=== PATIENT | female | born 1995 | race African-American/Black ===

== ENCOUNTER 2019-11-29 18:46 | Emergency (ER) | payer BC, SELFPAY ==
--- NOTE | ~2019-11-29 | XR_ITS ---
EXAMINATION: XR chest 2V DATE: 11/29/2019 21:36 INDICATION: Cough, fever and congestion TECHNIQUE: PA and lateral views of the chest were obtained. COMPARISON: Chest radiograph dated 06/02/2017 FINDINGS: The lungs remain clear with no focal airspace opacities, pulmonary edema, pleural effusion or pneumot horax. The cardiomediastinal silhouette is normal. Visualized bones and soft tissues are unremarkable . IMPRESSION: 1. Normal chest radiograph. Reviewed, dictated and finalized at location [facility]. DONTIC ASSISTANT IMPRESSION: 1. Normal chest radiograph.
[2019-11-29 18:55] VITALS: BP 145/80; PULSE 118; RESP 18; TEMP 37.9; O2SAT 100
--- NOTE | 2019-11-29 19:56 | ED.FEVER ---
HPI - Fever General Chief Complaint: Fever Stated Complaint: fever Time Seen by Provider: 11/29/19 19:08 Source: patient Mode of arrival: ambulatory Limitations: no limitations History of Present Illness HPI Narrative: Patient is a 24-year-old female who presents to emergency department for evaluation of fever chills body aches that began yesterday denies vomiting or diarrhea has been using her rescue inhaler with improvement is also taken [id number] medications with improvement patient denies known sick contacts notes aching pain that is generalized Related Data Home Medications Medication Instructions Recorded Confirmed valacyclovir 500 mg tablet 500 mg PO DAILY 10/29/19 Allergies Allergy/AdvReac Type Severity Reaction Status Date / Time Sulfa (Sulfonamide Allergy Unknown Hives Verified 11/29/19 18:59 Antibiotics) Review of Systems Review of Systems: All systems reviewed & are unremarkable except as noted in HPI and below PMFSH Past Medical History Medical History (Updated 11/29/19 @ 19:59 by Vu Escalona PA-C) Asthma Social History Social History Smoking status: Never smoker Second hand tobacco smoke exposure: No Alcohol intake: never Substance use: never Substance use type: does not use Gender identity (if verbalized by the patient): Female Exam Narrative: Exam Narrative: GENERAL: Well-appearing, well-nourished, and in no acute distress. HEAD: Normocephalic, atraumatic. EYES: PERRLA and EOMI. ENT: Nares clear, no rhinorrhea or epistaxis. Mucous membranes moist. Oropharynx without tonsillar hypertrophy exudate or other lesions. NECK: Supple. No adenopathy or masses. CHEST: Clear to auscultation. No respiratory distress. No wheezes rales or rhonchi HEART: Regular rate and rhythm. No murmur heard.. EXTREMITIES: Normal range of motion. No edema. SKIN: Warm, dry, no rash. NEURO: No focal deficits. Alert and oriented x3. Cranial nerves II through XII grossly intact PSYCH: Normal mood and affect. Course COMMUNICATIONS ASSISTANT/PA Physician Supervision Patient in the room in no distress aware of case findings treatment plan and diagnosis likely viral syndrome felt appropriate for discharge home provided with reasons to return Vital Signs Vital signs: Vital Signs Temperature 100.3 F H 11/29/19 18:55 Pulse Rate 118 H 11/29/19 18:55 Respiratory Rate 18 11/29/19 18:55 Blood Pressure 145/80 H 11/29/19 18:55 Pulse Oximetry 100 11/29/19 18:55 Temperature 100.3 F H 11/29/19 18:55 Pulse Rate 118 H 11/29/19 18:55 Respiratory Rate 18 11/29/19 18:55 Blood Pressure 145/80 H 11/29/19 18:55 Pulse Oximetry 100 11/29/19 18:55 MDM - Fever MDM Narrative Medical decision making narrative: Patient with likely viral syndrome in the room in no distress aware of case findings treatment plan and diagnosis felt appropriate for outpatient reevaluation nontoxic-appearing without emesis Lab Data Labs: Influenza A Screen Negative Reference Range: Negative Influenza B Screen Negative Reference Range: Negative Discharge Plan Discharge Clinical Impression: Viral infection Patient Disposition: Home, Self-Care Condition: Stable Instructions: Antibiotic Form, Viral Syndrome (ED) Additional Instructions: Follow up with your primary care provider within 3-5 days. Go to ER for shortness of breath, difficulty breathing, chest pain, fever/chills, weakness, nauseau/vomitting, etc. or any other concerns. Stay well-hydrated Take any prescribed medications as directed. Follow patient education sheets If you do not have a drug allergy to tylenol or motrin and can tolerate it then take tylenol or motrin as needed for discomfort/pain. Prescriptions: New ibuprofen [IBU] 600 mg tablet 600 mg PO TID PRN (Reason: fever or pain) Qty: 7 RF: 0 albuterol sulfate 90 mcg/actua
[2019-11-29] MEDS: IBUPROFEN 600 MG TABLET PO (20:06)
[2019-11-29 21:56] VITALS: BP 128/80; PULSE 90; RESP 20; TEMP 37.6; O2SAT 98
== END 2019-11-29 21:57 | disposition home or self-care (01) ==
PROVIDERS: Emergency Provider Emergency Medicine; PCP Pediatrics
DX: B34.9 Viral infection, unspecified (principal); J45.909 Unspecified asthma, uncomplicated
CPT/HCPCS: 71046; 87081; 87804; 87880; 99283; A9270

== ENCOUNTER 2020-01-18 05:53 | Day surgery (SDC) | payer BC, SELFPAY ==
[2020-01-13 10:26] VITALS: BMI 32.1
[2020-01-18 07:28] VITALS: BP 132/77; PULSE 85; RESP 14; TEMP 36.7; O2SAT 100; BMI 33.3
--- NOTE | 2020-01-18 07:39 | P.PNAN_ITS ---
Anes - Initial Pre Proc Eval Procedure: Operation Date: 01/18/20 08:30 Proposed Procedures p Colonoscopy - Nelson Mullen MD Date/Time: 01/18/20 07:39 Surgeon: Nelson Mullen MD Pre Op Diagnosis: bloody stools Patient Data Age: 24 Gender: F Height: 5 ft 8 in Weight: 99.5 kg Last Vital Signs Temp 36.7 C 01/18/20 07:28 Pulse 85 01/18/20 07:28 Resp 14 01/18/20 07:28 BP 132/77 01/18/20 07:28 Pulse Ox 100 01/18/20 07:28 Allergies Allergy/AdvReac Type Severity Reaction Status Date / Time Sulfa (Sulfonamide Allergy Unknown Hives Verified 01/18/20 07:25 Antibiotics) Home Medications Medication Instructions Recorded Confirmed Type valacyclovir 500 mg tablet 500 mg PO DAILY 10/29/19 01/18/20 History albuterol sulfate 2 puff INHALATION QID PRN #6.7 gm 11/29/19 01/13/20 Rx Patient hx anesthesia problems: none Family hx anesthesia problems: none [facility] Past Medical History Medical History (Updated 01/07/20 @ 21:36 by Yu Khan MD) Asthma Surgical History Surgical History (Updated 01/18/20 @ 07:39 by Rob Vivas MD) History of bunionectomy Social History Social History Social History: single Smoking status: Never smoker Second hand tobacco smoke exposure: No Alcohol intake: never Substance use: never Substance use type: does not use Gender identity (if verbalized by the patient): Female Anes - Eval Final PreProcedure Day of Procedure 01/18/20 07:39 Patient weight: obese Heart: regular rate and rhythm Lungs: clear to auscultation Airway: Mallampati scale class II Neurological: alert and oriented Last oral intake: >/= 8 hours ASA classification: II Emergent: no Anesthetic plan: proceed Anesthesia type and monitoring: general GIVS and standard monitoring Informed Consent: The patient's anesthetic plan and its attendant risks and benefits were discussed with the patient/family/POA. Questions were solicited and answers provided to the satisfaction of the patient/family/POA.
[2020-01-18] MEDS: LACTATED RINGERS 1,000 ML 150 ML IV CONT (07:40)
[2020-01-18 08:45] VITALS: BP 113/75; PULSE 81; RESP 23; O2SAT 100
--- NOTE | 2020-01-18 08:46 | WPDHPUPDATE1 ---
History and Physical Update Update Date/Time: 01/18/20 08:46 History and Physical has been reviewed, including an updated exam of the patient. There are NO changes in the patient's condition. Risks, benefits, and alternatives have been discussed and questions answered. Patient agrees to proceed with procedure.
[2020-01-18 08:55] VITALS: BP 127/75; PULSE 75; RESP 22; O2SAT 100
[2020-01-18 08:57] VITALS: BP 122/48; PULSE 72; RESP 20; O2SAT 100
== END 2020-01-18 09:26 | disposition home or self-care (01) ==
PROVIDERS: PCP Family Medicine; Visit Provider Internal Medicine Gastroenterology
PROC: 0DJD8ZZ Inspection of Lower Intestinal Tract, Via Natural or Artificial Opening Endoscopic (ICD-10-PCS; CPT 45378; principal; 2020-01-18 08:30)
DX: K62.5 Hemorrhage of anus and rectum (principal); J45.909 Unspecified asthma, uncomplicated; E66.9 Obesity, unspecified; Z68.33 Body mass index [BMI] 33.0-33.9, adult; Z83.71 Family history of colonic polyps
CPT/HCPCS: 45378; J2001; J2704; J7120

== ENCOUNTER 2020-04-08 11:55 | Emergency (ER) | payer BC, SELFPAY ==
[2020-04-08 12:02] VITALS: BP 135/84; PULSE 80; RESP 18; TEMP 36.8; O2SAT 100
--- NOTE | 2020-04-08 13:57 | ED.GENADULT ---
HPI - General Adult General Chief complaint: Skin/Abscess/Foreign Body Stated complaint: Cyst L thigh Time Seen by Provider: 04/08/20 12:04 Source: patient Mode of arrival: ambulatory Limitations: no limitations History of Present Illness HPI narrative: Patient is a 25-year-old female who presents to emergency department for evaluation of red tender swollen area in the left groin which is been there for the last several days. Patient notes increasing redness and pain worse with activity and movement. Patient believes she has had a cyst in this location that has become more swollen over the last several days. Patient denies any fever chills nausea vomiting. Patient has not taken anything for her some Related Data Allergies Allergy/AdvReac Type Severity Reaction Status Date / Time Sulfa (Sulfonamide Allergy Unknown Hives Verified 04/08/20 12:01 Antibiotics) Review of Systems Review of Systems: All systems reviewed & are unremarkable except as noted in HPI and below PMFSH Past Medical History Medical History Asthma Surgical History Surgical History History of bunionectomy Social History Social History Social History: single Smoking status: Never smoker Second hand tobacco smoke exposure: No Alcohol intake: never Substance use: never Substance use type: does not use Gender identity (if verbalized by the patient): Female Exam Narrative: Exam Narrative: GENERAL: Well-appearing, well-nourished, and in no acute distress. HEAD: Normocephalic, atraumatic. EYES: PERRLA and EOMI. ENT: Nares clear, no rhinorrhea or epistaxis. Mucous membranes moist. EXTREMITIES: Normal range of motion. No edema. SKIN: Warm, dry, no rash. Red tender swollen area in the left groin with surrounding erythema measuring 7 cm in diameter NEURO: No focal deficits. Alert and oriented x3. Neurovascularly intact PSYCH: Normal mood and affect. Course Course Emergency Course: Patient in the room in no distress aware of case findings treatment plan and diagnosis agreeing to follow-up as instructed Vital Signs Vital signs: Vital Signs Temperature 98.3 F 04/08/20 12:02 Pulse Rate 80 04/08/20 12:02 Respiratory Rate 18 04/08/20 12:02 Blood Pressure 135/84 04/08/20 12:02 Pulse Oximetry 100 04/08/20 12:02 Temperature 98.3 F 04/08/20 12:02 Pulse Rate 80 04/08/20 12:02 Respiratory Rate 18 04/08/20 12:02 Blood Pressure 135/84 04/08/20 12:02 Pulse Oximetry 100 04/08/20 12:02 Procedures Abscess I/D lower extremity: Date of Incision: 04/08/20 Time of Incision: 14:08 Side (if applicable): left Local Anesthetic: lidocaine 1% Technique: incised with #11 blade Amount of fluid expressed (mL): 25 Irrigation: No Packing used?: iodoform I&D Results: Pus and Blood Complications: pain Medical Decision Making MDM Narrative Medical decision making narrative: Patient had I&D in no distress agreeing to follow-up as directed provided with reasons to return otherwise healthy normal vital signs Vital Signs Vital Signs: Vital Signs Temperature 98.3 F 04/08/20 12:02 Pulse Rate 80 04/08/20 12:02 Respiratory Rate 18 04/08/20 12:02 Blood Pressure 135/84 04/08/20 12:02 Pulse Oximetry 100 04/08/20 12:02 Temperature 98.3 F 04/08/20 12:02 Pulse Rate 80 04/08/20 12:02 Respiratory Rate 18 04/08/20 12:02 Blood Pressure 135/84 04/08/20 12:02 Pulse Oximetry 100 04/08/20 12:02 Discharge Plan Discharge Clinical Impression: Abscess Patient Disposition: Home, Self-Care Condition: Stable Instructions: Antibiotic Form, Abscess (ED) Additional Instructions: Follow up with primary care in the next 2-3 days for re-evaluation and packing r
[2020-04-08 14:17] VITALS: BP 134/70; PULSE 82; RESP 12; O2SAT 99
== END 2020-04-08 14:19 | disposition home or self-care (01) ==
PROVIDERS: Emergency Provider Emergency Medicine; PCP Pediatrics
DX: L02.214 Cutaneous abscess of groin (principal); J45.909 Unspecified asthma, uncomplicated
CPT/HCPCS: 10061; 99283

== ENCOUNTER → 2021-07-07 03:42 | Outpatient (CLI) | payer BC, SELFPAY ==
[2021-07-07 17:41] LABS: SARS-CoV-2 RNA PCR Negative
== END ==
PROVIDERS: Physician Assistant; PCP Family Medicine; Visit Provider Family Medicine
DX: R68.89 Other general symptoms and signs (principal); Z20.822 Contact with and (suspected) exposure to COVID-19
CPT/HCPCS: C9803; U0003; U0005

== ENCOUNTER 2021-09-14 12:25 | Outpatient (CLI) | payer BC, SELFPAY ==
--- NOTE | ~2021-09-14 | US_ITS ---
US breast LT complete DATE: 09/14/2021 14:14 INDICATION: Left breast pain TECHNIQUE: Real-time imaging of the complete left breast including all 4 quadrants and subareolar are a COMPARISON: None FINDINGS: No suspicious mass, suspicious vascularity or significant abnormal shadowing is detected. IMPRESSION: BI-RADS Category 1: Negative Recommendation: Routine mammographic screening beginning at age 40 Reviewed, dictated and finalized at [facility]. Reviewed, dictated and finalized at location A. 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
== END 2021-09-14 12:26 | disposition home or self-care (01) ==
PROVIDERS: PCP Family Medicine; Visit Provider Family Medicine
DX: N64.4 Mastodynia (principal)
CPT/HCPCS: 76641

== ENCOUNTER 2022-02-18 08:59 | Emergency (ER) | payer OTHER, BC, SELFPAY ==
[2022-02-18] VITALS (7 sets, daily range): BP systolic 126; BP diastolic 70–71; PULSE 69–90; RESP 18; TEMP 36.3; O2SAT 99–100
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
--- NOTE | ~2022-02-18 | XR_ITS ---
EXAMINATION: XR foot RT min 3V DATE: 02/18/2022 10:22 INDICATION: Right foot pain TECHNIQUE: Dorsoplantar, two oblique and lateral views of the right foot were obtained. COMPARISON: None. FINDINGS: Alignment is normal. No fracture. Joint spaces are normal. Small Achilles calcaneal spur. Soft tissue s are unremarkable. IMPRESSION: 1. No acute osseous abnormality. Reviewed, dictated and finalized at location A.
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
== END 2022-02-18 11:36 | disposition home or self-care (01) ==
PROVIDERS: Emergency Provider Emergency Medicine; PCP Family Medicine
DX: S16.1XXA Strain of muscle, fascia and tendon at neck level, initial encounter (principal); S90.31XA Contusion of right foot, initial encounter; M54.50 Low back pain, unspecified; V43.52XA Car driver injured in collision with other type car in traffic accident, initial encounter
CPT/HCPCS: 70450; 71046; 72110; 72125; 73630; 99284

== ENCOUNTER → 2022-03-23 02:28 | Outpatient (CLI) | payer BC, SELFPAY ==
[2022-03-23 14:11] LABS: SARS-CoV-2 RNA PCR Positive
== END ==
PROVIDERS: PCP Family Medicine; Visit Provider Physician Assistant
DX: U07.1 COVID-19 (principal)
CPT/HCPCS: C9803; U0003; U0005

== ENCOUNTER 2024-02-01 20:41 | Emergency (ER) | payer OTHER, SELFPAY ==
[2024-02-01 20:42] VITALS: BP 136/86; PULSE 90; RESP 15; TEMP 36.4; O2SAT 100
--- NOTE | 2024-02-01 20:52 | ED.GENADULT ---
[facility] - General Adult General Chief complaint: Skin/Abscess/Foreign Body Stated complaint: Cyst on left thigh Time Seen by Provider: 02/01/24 20:46 Source: patient Mode of arrival: ambulatory Limitations: no limitations History of Present Illness HPI narrative: This is a 28-year-old female who presents to the ED with chief complaint of left inner thigh pain and swelling for the past week. Reports a focal area of swelling consistent with what she thinks to be a cyst. Patient reports that she has had this develop in the past around the same area. She has associated lesions that are similar but less painful to her superior pubic area. Denies fevers, chills, nausea vomiting. Related Data Allergies Allergy/AdvReac Type Severity Reaction Status Date / Time Sulfa (Sulfonamide Allergy Unknown Hives Verified 02/01/24 20:45 Antibiotics) Review of Systems Review of Systems: All systems as dictated in [facility] Past Medical History Medical History Asthma Bronchospasm, exercise-induced Foul smelling vaginal discharge Herpes genitalia STD (sexually transmitted disease) Trichomonas vaginalis infection Surgical History Surgical History History of bunionectomy Social History Social History Social History: Single Smoking status: Never smoker Second hand tobacco smoke exposure: No Alcohol intake: never Substance use: never Substance use type: does not use Do You Feel Safe in your Home?: Yes Lack of Transportation: No Lack of Food: Never True Current Housing: I Have Housing Concerned About Future Housing: No Difficulty Paying Gas/Electric Bills: No Difficulty Paying for Meds: No Currently Unemployed: No Education: Decline to Answer Difficulty w/ Childcare or Family Care: No Living arrangements: with family Occupation/Education: occupation Gender identity (if verbalized by the patient): Female Sexual Orientation (if Verbalized by the Patient): Straight or Heterosexual Exam Narrative: GENERAL: Well-appearing, well-nourished, and in no acute distress. HEAD: Normocephalic, atraumatic. EYES: PERRLA and EOMI. ENT: Nares clear, no rhinorrhea or epistaxis. Mucous membranes moist. Oropharynx without tonsillar hypertrophy exudate or other lesions. NECK: Supple. No adenopathy or masses. CHEST: No respiratory distress. Clear to auscultation. No wheezes rales or rhonchi HEART: Regular rate and rhythm. No murmur heard. Normal peripheral pulses. ABDOMEN: Soft, nontender, nondistended, normal active bowel sounds. MSK: Normal range of motion. No edema. SKIN: There is an area of warmth, induration to the left medial thigh. No drainage. No obvious fluid collection. No area of skin NEURO: Alert and oriented x3. No focal deficits. PSYCH: Normal mood and affect. Course Course Emergency Course: Bedside ultrasound showed obvious fluid collection at the left thigh indicating soft tissue abscess. No surrounding induration or skin changes to indicate severe deep space infection such as Kameron's gangrene. Vital Signs Vital signs: Vital Signs Temperature 97.5 F L 02/01/24 20:42 Pulse Rate 90 02/01/24 20:42 Respiratory Rate 15 02/01/24 20:42 Blood Pressure 136/86 02/01/24 20:42 Pulse Oximetry 100 02/01/24 20:42 Oxygen Delivery Room Air 02/01/24 20:42 Temperature 97.5 F L 02/01/24 20:42 Pulse Rate 79 02/01/24 22:35 Respiratory Rate 20 02/01/24 22:35 Blood Pressure 137/91 H 02/01/24 22:35 Pulse Oximetry 100 02/01/24 22:35 Oxygen Delivery Room Air 02/01/24 20:42 Procedures Abscess I/D lower extremity: Date of Incision: 02/01/24 Time of Incision: 22:22 Side (if applicable): left Local Anesthetic: lidocaine 1% and with epi Amount of anesthesia used
[2024-02-01] MEDS: HYDROcodone/acetaminophen (*CRX) 7.5-325 MG TABLET 1 TAB PO (21:48)
--- NOTE | 2024-02-01 22:32 | PC.NURSE ---
Applied non-adherent dressing and secured with tape at this time.
[2024-02-01 22:35] VITALS: BP 137/91; PULSE 79; RESP 20; O2SAT 100
== END 2024-02-01 22:35 | disposition home or self-care (01) ==
PROVIDERS: Emergency Provider Physician Assistant; PCP Family Medicine
DX: L02.416 Cutaneous abscess of left lower limb (principal); J45.909 Unspecified asthma, uncomplicated
CPT/HCPCS: 10060; 99283; A9270

== ENCOUNTER 2024-12-16 04:37 | Observation (INO) | payer OTHER, SELFPAY ==
[2024-12-16] VITALS (14 sets, daily range): BP systolic 121–142; BP diastolic 62–87; PULSE 74–94; RESP 12–20; TEMP 36.3–36.8; O2SAT 95–100; BMI 36.5
--- NOTE | ~2024-12-16 | CT_ITS ---
CT of the Abdomen and Pelvis: Indication: Abdominal pain Technique: 2.5 mm axial scans were obtained through the abdomen and pelvis following intravenous adm inistration of 100 cc of Omnipaque 350. Dose reduction technique was used on this scan by utilizing a utomated exposure control and iterative reconstruction technique. The dose-length product (DLP) was 1 158.11 mGy-cm. Findings: Scans through the lung bases are unremarkable. The liver, spleen, pancreas, gallbladder, adrenals and kidneys are within normal limits. No evidence of aortic aneurysm. No lymphadenopathy. No bowel obstruction or bowel wall thickening. Appendix is mildly prominent at 8 mm. Questionable min imal periappendiceal inflammatory stranding. Images through the pelvis were performed. Urinary bladder unremarkable. Probable small right ovarian cyst. Small amount of pelvic ascites present. Impression: Findings suggestive of possible early appendicitis. Correlate clinically. Small right ovarian cyst with small amount of pelvic ascites. Reviewed, dictated and finalized at [facility]. Impression: Findings suggestive of possible early appendicitis. Correlate clinically. Small right ovarian cyst with small amount of pelvic ascites.
--- OUTSIDE RECORDS SUMMARY | 2024-12-16 04:39 | XMS_ITS | Clinical Summary ---
Author Organization [facility] Address [address] [place] [address] Care Team Providers Care Occupational Therapy Assist Name Role Phone Unavailable Primary Care Provider Unavailabl e Source Comments [facility],non-owned Affiliates and Associated Physician Practices is amultiple site organization consisting of ambulatory clinics and hospital sitesin [place], [place], [place] and [place]. This disclosure is being madepursuant to the Care Everywhere program and may not contain all information available regarding this patient. Last updated 18.[facility] Allergies Active Allergy Reactions Criticality Noted Date Comments Sulfa Drugs Urticaria 11/01/2009 Medications * Be aware that medications may not be up to date on this document. Alwaysverify current medications with the patient. Medication Sig Dispensed Refills Start Date End Date Status Peak Flow Meter [place] Rang LUISA Use. Use as directed to monitor asthma symptoms 1 0 10/21/2009 Active albuterol (PROVENTIL;VENTOLIN ) (5 MG/ML) 0.5% nebulizer solution Inhale 1 mL by mouth. Use every 4 hours as needed for cough, wheeze 30 Vial 1 11/03/2010 Active VENTOLIN HFA 108 (90 BASE) MCG/ACT inhaler INHALE 2 PUFFS BY MOUTH EVERY 4 HOURS NEEDED 1 Inhaler 0 01/06/2013 Active SUMAtriptan (IMITREX) 50 MG tabletIndications:H eadache Take 1 Tab by mouth once as needed for Migraine for 1 dose. Indications: Headache 8 Tab 4 01/19/2013 Active naproxen sodium (ANAPROX) 275 MG tabletIndications:M ild to Moderate Pain Take 1 Tab by mouth 2 times daily as needed for Pain. Indications: Mild to Moderate Pain 30 Tab 4 01/19/2013 Active topiramate (TOPAMAX) 25 MG tabletIndications:M igraine Take 1 tab at bedtime for 2 weeks, then take 2 tabs at bedtime. Indications: Migraine Headache 45 Tab 1 01/19/2013 Active naproxen sodium (ANAPROX DS) 550 MG tabletIndications:E pisodic Migraine Headache Prevention Take 1 Tab by mouth 2 times daily. Indications: Episodic Migraine Headache Prevention 30 Tab 4 04/22/2013 Active albuterol HFA (PROVENTIL;VENTOLIN ;PROAIR) 108 (90 BASE) MCG/ACT inhaler Inhale 2 Puffs by mouth every 4 hours as needed for Wheezing or Cough. OK TO SUBSTITUTE ANY BRAND. 2 Inhaler 0 05/07/2013 Active Active Problems Problem Noted Date Diagnosed Date Acne 03/20/2012 Asthma 03/26/2011 Overview (08/07/2015): Immunizations Name Administration Dates Next Due DTaP VACCINE IM (6wk-6yrs) 04/16/2002,,1997,07/12,1997 HEP A PEDS 2 DOSE 05/12/2010,05/06/2008 HEP B VACCINE, PED/ADOL 1997,1997, Human Papilloma Virus Vaccine 05/06/2008, 007,05/05/2007 INFLUENZA VACCINE, QUADR. (F LUZONE; FLULAVAL; FLUARIX; AFLURIA QUADRIVALENT; 6MO+), 0.5 ML (IIV4) 08/16/2014,06/29/2013 MENINGOCOCAL MENINGITIS 05/06/2008 MENINGOCOCCAL CONJUGATE (MCV4P) 03/19/2013 MMR 04/16/2002,04/25/1998 POLIO OPV 04/16/2002, 8,1997,05/11 TDAP (7yrs+) 05/12/2010 VARICELLA 05/06/2008,05/21/2007 Family History Medical History Relation Name Comments Hypercholesterolemia Father Hypertension Father Allergies Mother Heart Disease Mother Mitral Valve P rolapse, has Pacemaker for Hypertension Mother Arthritis Paternal Grandmother Asthma Sister Relation Name Status Comments Father Mother Paternal Grandmother Sister Social History Tobacco Use Types Packs/Day Years Used Date Smoking Tobacco: Never Assessed Sex and Gender Information Value Date Recorded Sex Assigned at Not on file Gender Identity Not on file Sexual Orientation Not on file Last Filed Vital Signs Vital Sign Reading Time Taken Comments Blood Pressure 122/60 04/22/2013 8:24 AM CDT Pulse 76 03/19/2013 1:34 PM CDT Temperature 36.9 C (98.4 F) 09/29/2012 9:04 AM ADVERTISING ACCOUNT REPRESENTATIVE Respiratory Rate 24 03/26/2011 1:22 PM CDT Oxygen Saturation 98% 11/03/2010 3:00 PM ADVERTISING ACCOUNT REPRESENTATIVE Inhaled Oxygen Concentration - - Weight 70.2 kg (154 lb 11.2 oz) 04/22/2013 8:24 AM CDT Height 172.5 cm (5' 7.91 ) 04/22/2013 8:24 AM CD T Body Mass Index 23.58 04/22/2013 8:24 AM CDT Plan of Treatment Health Maintenance Due Date Last Done Comments PAP SMEAR 1997 HIV SCREENING 2012 HEPATITIS C SCREENING 03/07/2015 PNEUMOCOCCAL VACCINE (1 of 2 - PCV) 2016 DTAP/TDAP/TD VACCINES (7 - Td or Tdap) 05/12/2020 05/12/2010, 04/16/2002, 05/23/2000, Additional history exists COVID-19 VACCINE (2023- season) 2024 INFLUENZA VACCINE (#1) 2024 08/16/2014, 2012 DEPRESSION SCREENING 09/30/2024 ZOSTER VACCINE (1 of 2) 2047 HEPATITIS B VACCINE Completed 1997, 1997, 1997 HPV VACCINE Completed 05/06/2008, 10/0 04/2007, 05/05/2007 MENINGOCOCCAL GROUPS A/C/Y/W VACCINE Completed 03/19/2013, 05/06/2008 HIB VACCINE Aged Out No longer eligi ble based on patient's age to complete this topic MENINGOCOCCAL (Group B) VACCINE SHARED DECISION-MAKING Aged Out No longer eligible based on patient's age to complete this topic
[2024-12-16 05:18] LABS: BEDSIDEPREGUCG Negative (Negative)
--- OUTSIDE RECORDS SUMMARY | 2024-12-16 05:22 | XMS_ITS | Clinical Summary ---
Author Organization [email or web address] Address [address] [place] [address] Care Team Providers Care Hot Knife Foxing Cutter Name Role Phone Unavailable Primary Care Provider Unavailabl e Source Comments [email or web address],non-owned Affiliates and Associated Physician Practices is amultiple site organization consisting of ambulatory clinics and hospital sitesin [place], [place], [place] and [place]. This disclosure is being madepursuant to the Care Everywhere program and may not contain all information available regarding this patient. Last updated 18.[email or web address] Allergies Active Allergy Reactions Criticality Noted Date Comments Sulfa Drugs Urticaria 11/01/2009 Medications * Be aware that medications may not be up to date on this document. Alwaysverify current medications with the patient. Medication Sig Dispensed Refills Start Date End Date Status Peak Flow Meter [place] Rang LUISA Use. Use as directed to [...] 36.9 C (98.4 F) 09/29/2012 9:04 AM DEPUTY SHERIFF BAILIFF Respiratory Rate 24 03/26/2011 1:22 PM CDT Oxygen Saturation 98% 11/03/2010 3:00 PM DEPUTY SHERIFF BAILIFF Inhaled Oxygen Concentration - - Weight 70.2 [...]
[2024-12-16 05:23] LABS: Add Urine Microscopic? NO; Appearance Urine Clear (Clear); Bilirubin Urine Negative (Negative); Blood Urine Negative (Negative); Color Urine Yellow (Yellow); Glucose Urine UA Negative (Negative); Ketones Urine Negative (Negative); Leukocyte Esterase Ur Negative LEU/UL (Negative); Nitrate Urine Negative (Negative); Protein Urine Negative (Negative); Specific Grav Ur 1.018 (1.001-1.035); Urobilinogen Urine 0.2 mg/dL (<2.0); pH Urine 5.5 (5.0-9.0)
--- NOTE | 2024-12-16 05:28 | ED_ITS ---
HPI - General Adult General Chief complaint: Urogenital-Female Stated complaint: c/o suprapubic pain Time Seen by Provider: 12/16/24 05:13 History of Present Illness HPI narrative: Patient 29-year-old female who presents emergency department with chief complaint suprapubic pain. Patient reports for the last 2 hours she has been having lower abdominal pain more in the suprapubic region patient states she has also had urinary frequency patient reports he has been holding her urine lot and is concerned that she may have a UTI patient denies fever reports her last menstrual period was within the last month and was normal Related Data Home Medications ?Medication ?Instructions ?Recorded ?Confirmed ?Last Taken ?Type spironolactone 100 mg tablet 100 mg PO DAILY 09/28/24 09/28/24 Unknown History Allergies Allergy/AdvReac Type Severity Reaction Status Date / Time Sulfa (Sulfonamide Allergy Unknown Hives Verified 12/16/24 04:37 Antibiotics) Review of Systems 2 Review of Systems: A 10 system review of systems was completed on the patient and is negative except for what is stated in the HPI. Nursing and ancillary documentation was reviewed. [facility] Past Medical History Medical History STD (sexually transmitted disease) Herpes genitalia Trichomonas vaginalis infection Bronchospasm, exercise-induced Foul smelling vaginal discharge Asthma Surgical History Surgical History History of bunionectomy Social History Social History Social History: Single Smoking status: Never smoker Second hand tobacco smoke exposure: No Alcohol intake: never Substance use: never Substance use type: does not use Do You Feel Safe in your Home?: Yes Lack of Transportation: No Lack of Food: Never True Current Housing: I Have Housing Concerned About Future Housing: No Difficulty Paying Gas/Electric Bills: No Difficulty Paying for Meds: No Currently Unemployed: No Education: Decline to Answer Difficulty w/ Childcare or Family Care: No Living arrangements: with family Occupation/Education: occupation Gender identity (if verbalized by the patient): Female Sexual Orientation (if Verbalized by the Patient): Straight or Heterosexual Exam 2 Narrative: GENERAL: Well-appearing, well-nourished, and in no acute distress. HEAD: Normocephalic, atraumatic. EYES: PERRLA and EOMI. ENT: Nares clear, no rhinorrhea or epistaxis. Mucous membranes moist. NECK: Supple. CHEST: Clear to auscultation. No respiratory distress. HEART: Regular rate and rhythm. No murmur heard. Normal peripheral pulses. ABDOMEN: Soft, tenderness to palpation in bilateral lower quadrants and suprapubic region, nondistended, normal active bowel sounds. EXTREMITIES: Normal range of motion. No edema. SKIN: Warm, dry, no rash. NEURO: No focal deficits. Alert and oriented x3. PSYCH: Normal mood and affect. Course Vital Signs Vital signs: Vital Signs Temperature 36.5 C 12/16/24 06:26 Pulse Rate 94 12/16/24 06:26 Respiratory Rate 17 12/16/24 06:26 Blood Pressure 132/87 12/16/24 06:26 Pulse Oximetry 98 12/16/24 06:26 Temperature 36.5 C 12/16/24 06:26 Pulse Rate 88 12/16/24 07:02 Respiratory Rate 16 12/16/24 07:02 Blood Pressure 142/71 H 12/16/24 07:02 Pulse Oximetry 100 12/16/24 07:02 Medical Decision Making MDM Narrative Medical decision making narrative: Differential diagnosis includes UTI, pyelonephritis, appendicitis, diverticulitis, colitis Laboratory studies were obtained showed normal CBC white count was 5.9 electrolytes are within normal limits urinalysis was negative test was negative CT scan of the abdomen pelvis showed Findings suggestive of possible early appendicitis. Correlate clinically. Small right ovarian cyst with small amount of pelvic ascites Given the findings of the CT scan the patient was started on Zosyn the case was discussed Dr. Salvador is on-call for surgery patient will be admitted to the surgical service for observation Vital Signs Vital Signs: Vital Signs Temperature 36.5 C 12/16/24 06:26 Pulse Rate 94 12/16/24 06:26 Respiratory Rate 17 12/16/24 06:26 Blood Pressure 132/87 12/16/24 06:26 Pulse Oximetry 98 12/16/24 06:26 Temperature 36.5 C 12/16/24 06:26 Pulse Rate 88 12/16/24 07:02 Respiratory Rate 16 12/16/24 07:02 Blood Pressure 142/71 H 12/16/24 07:02 Pulse Oximetry 100 12/16/24 07:02 Lab Data 12/16/24 05:46 12/16/24 05:46 Labs: Lab Results 12/16/24 12/16/24 12/16/24 Range/Units 05:11 05:15 05:46 WBC 5.9 (4.5-10.0) K/mm3 RBC 3.89 L (4.2-5.4) M/mm3 Hgb 11.1 L (12.0-15.0) g/dL Hct 34.0 L (37.0-47.0) % MCV 87.4 (80-100) fl MCH 28.5 (26-34) pg MCHC 32.6 (32-36) g/dl RDW 14.0 (11.5-14.5) % Plt Count 296 (150-375) k/mm3 MPV 10.7 H (7.4-10.4) fl Immature Gran % (Auto) 0.2 (0-0.5) % Neut % (Auto) 50.5 (45.5-73.1) % Lymph % (Auto) 37.6 (18.3-44.2) % [place] % (Auto) 8.1 (2.6-8.5) % Eos % (Auto) 2.9 (0-4.4) % Baso % (Auto) 0.7 (0.2-1.2) % Lymph # (Auto) 2.22 (0.9-3.2) K/mm3 [place] # (Auto) 0.5 (0.1-0.6) K/mm3 Eos # (Auto) 0.2 (0-0.3) K/mm3 Baso # (Auto) 0.0 (0.0-0.1) K/mm3 Abs Immat Gran (auto) 0.01 (0.00-0.031) K/mm3 Absolute Neuts (auto) 3.0 (1.3-6.7) K/mm3 Absolute Nucleated RBC 0.000 (0.0-0.012) K/mm3 Nucleated RBC % 0.0 (0.0-0.2) % Sodium 137 (137-145) mmol/L Potassium 3.9 (3.4-5.0) mmol/L Chloride 104 (98-107) mmol/L Carbon Dioxide 25 (22-30) mmol/L Anion Gap 8 (4-12) mmol/L BUN 9 (7-17) mg/dL Creatinine 0.84 (0.7-1.0) mg/dL Estim Creat Clear Calc 114 ml/min Estimated GFR > 60 (59 - ) Glucose 111 H (65-110) mg/dL Calcium 9.3 (8.4-10.2) mg/dL Total Bilirubin 0.7 (0.2-1.3) mg/dL AST 21 (14-36) U/L ALT 21 (6-35) U/L Alkaline Phosphatase 61 (38-126) U/L Total Protein 7.0 (6.3-8.2) g/dL Albumin 4.0 (3.5-5.1) g/dL Lipase 37 (23-300) U/L Urine Color Yellow (Yellow) Urine Appearance Clear (Clear) Urine pH 5.5 (5.0-9.0) Ur Specific [place] 1.018 (1.001-1.035) Urine Protein Negative (Negative) mg/dL Urine Glucose (UA) Negative (Negative) mg/dL Urine Ketones Negative (Negative) mg/dL Ur Blood (Man) Negative (Negative) Urine Nitrate Negative (Negative) Urine Bilirubin Negative (Negative) Urine Urobilinogen 0.2 (<2.0) mg/dL Leukocyte Esterase Rfl Negative (Negative) LAURA/UL POC Urine HCG, Qual Negative (Negative) Discharge Plan Discharge Clinical Impression: Abdominal pain, Acute appendicitis Patient Disposition: Still a Patient Condition: Stable Patient Language: Slovak Prescriptions: No Action spironolactone 100 mg tablet 100 mg PO DAILY Rx Instructions: as per derm valacyclovir [Valtrex] 500 mg tablet 500 mg PO DAILY Qty: 90 0RF Follow-up/Referrals: Juan Pablo Reddy MD [Primary Care Provider] - Time of Disposition: 07:06
[2024-12-16 06:12] LABS: Basophils Percent Auto 0.7 % (0.2-1.2); Eosinophils Absolute Auto 0.2 K/mm3 (0-0.3); Eosinophils Percent Auto 2.9 % (0-4.4); Hemoglobin 11.1 g/dL (12.0-15.0); Immature Granulocyte Absolute 0.01 K/mm3 (0.00-0.031); Immature Granulocyte Percent A 0.2 % (0-0.5); Lymphocytes Absolute Auto 2.22 K/mm3 (0.9-3.2); Lymphocytes Percent Auto 37.6 % (18.3-44.2); Mean Corpuscular HGB Conc 32.6 g/dl (32-36); Mean Corpuscular Hemoglobin 28.5 pg (26-34); Mean Corpuscular Volume 87.4 fl (80-100); Mean Platelet Volume 10.7 fl (7.4-10.4); Monocytes Absolute Auto 0.5 K/mm3 (0.1-0.6); Monocytes Percent Auto 8.1 % (2.6-8.5); Neutrophils Percent Auto 50.5 % (45.5-73.1); Platelet Count Result 296 k/mm3 (150-375); Red Blood Count 3.89 M/mm3 (4.2-5.4); White Blood Count 5.9 K/mm3 (4.5-10.0)
[2024-12-16 06:22] LABS: Alanine Aminotransferase 21 U/L (6-35); Alkaline Phosphatase 61 U/L (38-126); Anion Gap 8 mmol/L (4-12); Aspartate Amino Transferase 21 U/L (14-36); Bilirubin,Total 0.7 mg/dL (0.2-1.3); Blood Urea Nitrogen 9 mg/dL (7-17); Calcium 9.3 mg/dL (8.4-10.2); Carbon Dioxide 25 mmol/L (22-30); Chloride 104 mmol/L (98-107); Estimated CRCL calculation 114 ml/min; Estimated Glomerular Filt Rate > 60; Glucose 111 mg/dL (65-110); Lipase 37 U/L (23-300); Potassium 3.9 mmol/L (3.4-5.0); Sodium 137 mmol/L (137-145)
[2024-12-16] MEDS: PIPERACILLN/TAZ 3.375GM/NS50ML 3.375 GM/50 ML BAG IVPB ×2 (07:26→12:18)
--- NOTE | 2024-12-16 09:32 | P.HP_ITS ---
H&P: HPI History of Present Illness Date/Time: 12/16/24 09:32 Chief Complaint: Lower abdominal pain Narrative: This is a 29-year-old woman who presented to the ED early this morning with complaints of lower abdominal pain. Her abdominal pain started last night initially was periumbilical. She reports it moved more into her lower abdomen throughout the night. Her pain was aggravated by bending and certain movements. No associated nausea, vomiting, diarrhea, fever, or chills. Due to her persistent pain, she came into the ED for evaluation. Labs showed a normal white blood cell count. CT scan of the abdomen/pelvis showed findings suggestive of possible early appendicitis, and a small right ovarian cyst with small amount of pelvic ascites. She was admitted and started on IV Zosyn. She is now seen on medical floor. Urine negative. Vital signs are stable and she is afebrile. No previous abdominal surgeries. Denies any dysuria, hematuria, frequency, urgency, vaginal discharge, vaginal odor or itching, new sexual partners, or any additional complaints. Review of Systems Review of Systems: All systems reviewed & are unremarkable except as noted in HPI and below PMFSH Past Medical History Medical History STD (sexually transmitted disease) Herpes genitalia Trichomonas vaginalis infection Bronchospasm, exercise-induced Foul smelling vaginal discharge Asthma Surgical History Surgical History History of bunionectomy Social History Social History Social History: Single Smoking status: Never smoker Second hand tobacco smoke exposure: No Alcohol intake: never Substance use: never Substance use type: does not use Do You Feel Safe in your Home?: Yes Lack of Transportation: No Lack of Food: Never True Current Housing: I Have Housing Concerned About Future Housing: No Difficulty Paying Gas/Electric Bills: No Difficulty Paying for Meds: No Currently Unemployed: No Education: Decline to Answer Difficulty w/ Childcare or Family Care: No Living arrangements: with family Occupation/Education: occupation Gender identity (if verbalized by the patient): Female Sexual Orientation (if Verbalized by the Patient): Straight or Heterosexual Meds Home Medications and Allergies Home Medications ?Medication ?Instructions ?Recorded ?Confirmed ?Type spironolactone 100 mg tablet 100 mg PO DAILY 09/28/24 09/28/24 History valacyclovir 500 mg tablet 500 mg PO DAILY #90 tabs 10/16/24 Rx (Valtrex) Allergies Allergy/AdvReac Type Severity Reaction Status Date / Time Sulfa (Sulfonamide Allergy Unknown Hives Verified 12/16/24 04:37 Antibiotics) Vital Signs Vital Signs - 24 hr 12/16/24 06:26 12/16/24 07:02 Temperature 97.7 F Pulse Rate 94 88 Respiratory Rate 17 16 Blood Pressure 132/87 142/71 H Pulse Oximetry 98 100 Exam Const: General: comfortable and no acute distress Nutritional Appearance: overweight Orientation/consciousness: patient oriented x3 HENMT: Head: normocephalic and atraumatic Ears: hearing grossly normal bilaterally Mouth: Yes moist mucous membranes Eyes: General: appearance normal, both eyes and all related structures Pupils: Equal, round and reactive pupils present Neck: Neck: normal visual inspection and full ROM Resp: Effort & Inspection: no respiratory distress Auscultation: clear to auscultation bilaterally Cardio: Rate: regular rate Rhythm: regular rhythm Peripheral pulses: Peripheral pulses 2+ throughout GI: Inspection: non-distended, no scars and no visible herniation GI Palp: Yes Soft to palpation, Yes Tenderness to palpation present (GI) (tenderness across the lower abdomen reportedly worse in the RLQ), Yes Guarding due to palpation present (GI) (RLQ and LLQ), Yes No hepatosplenomegaly present and No Rebound tenderness present Percussion: Yes normal to percussion Auscultation: normal bowel sounds Skin: General skin exam: normal color Neuro: General: moves all extremities and no focal motor deficits Speech: normal speech Motor exam (neuro): 5/5 motor strength present throughout Extrem: General: normal to inspection and no edema Psych: Mental Status: mental status grossly normal Attitude: cooperative Insight: Good insight present (Psych) Judgement: Good judgement present (Psych) H&P: Results Labs Labs: Short CBC 12/16/24 Range/Units 05:46 WBC 5.9 (4.5-10.0) K/mm3 Hgb 11.1 L (12.0-15.0) g/dL Hct 34.0 L (37.0-47.0) % Plt Count 296 (150-375) k/mm3 BMP 12/16/24 05:46 Sodium 137 Potassium 3.9 Chloride 104 Carbon Dioxide 25 BUN 9 Creatinine 0.84 Glucose 111 H Calcium 9.3 Liver Function 12/16/24 Range/Units 05:46 Total Bilirubin 0.7 (0.2-1.3) mg/dL AST 21 (14-36) U/L ALT 21 (6-35) U/L Alkaline Phosphatase 61 (38-126) U/L Albumin 4.0 (3.5-5.1) g/dL Urine 12/16/24 Range/Units 05:11 Urine Color Yellow (Yellow) Urine Appearance Clear (Clear) Urine pH 5.5 (5.0-9.0) Ur Specific [place] 1.018 (1.001-1.035) Urine Protein Negative (Negative) mg/dL Urine Glucose (UA) Negative (Negative) mg/dL Imaging CT scan - abdomen: Radiologist's impression: ITS Impressions Abdomen/Pelvis CT 12/16/24 06:49 Impression: Findings suggestive of possible early appendicitis. Correlate clinically. Small right ovarian cyst with small amount of pelvic ascites. Assessment and Plan Assessment and plan (1) Acute appendicitis: Code(s): K35.80 - Unspecified acute appendicitis Status: Acute Assessment and Plan: CT abd/pelvis showed mildly dilated appendix with possible periappendiceal inflammatory stranding, suggesting early appendicitis. Her clinical presentation is consistent with acute appendicitis and she does have tenderness in the RLQ. I discussed possible differentials with the patient as well as treatment options for acute appendicitis, including both nonoperative treatment with IV antibiotics/monitoring versus proceeding with surgery. We discussed the risks of recurrence or treatment failure with the option of antibiotic therapy. I also discussed the details of a laparoscopic appendectomy, possible open, under general anesthesia that would be done by Dr. Maldonado. Description of the procedure, risks, benefits, alternatives, and expected recovery were discussed. She wishes to proceed with surgery. Will keep her NPO and continue IV antibiotics, IV fluids, and analgesics as needed pre-operatively. She has been added to the surgery schedule for today. (2) Right ovarian cyst: Code(s): N83.201 - Unspecified ovarian cyst, right side Status: Acute Assessment and Plan: Small right ovarian cyst with small pelvic ascites on CT. I discussed these findings with the patient. We discussed the possibility of a ruptured right ovarian cyst. She does not have any symptoms of any other gynecological issues or PID. No history of PCOS. Will proceed with surgery as mentioned above and she plans to follow-up with her PCP after discharge regarding possible referral to OBGYN. She typically has her well woman exams with her PCP. (3) Hidradenitis suppurativa: Code(s): L73.2 - Hidradenitis suppurativa Status: Acute Assessment and Plan: For which she takes spironolactone. Plan I have discussed the patient's case and plan of care with Dr. Maldonado. Quality VTE Prophylaxis VTE prophylaxis: mechanical ordered If No VTE Prophylaxis Answer both mechanical and pharmacologic: Reason no pharmacologic proph: medical contraindication (surgery)
--- NOTE | 2024-12-16 10:55 | ADMGEN ---
This patient, Linda Madera, was admitted to [facility] Surg Room 303-01. Patient/family oriented to hospital policies and general routines including ID bracelet, bed and alarms, visiting hours, pain management, procedures, bathroom and other care routines, personal items, smoking policy, room service/diet, and visiting hours. Information on how to activate the Rapid Response Team has been discussed. Patient/Family are encouraged to report perceived risks to care and to ask questions if they do not understand what they are told or what they should do.
[2024-12-16] MEDS: SODIUM CHLORIDE 0.9% IV 1,000 ML 125 ML IV CONT (11:04)
--- NOTE | 2024-12-16 11:38 | WPDHPUPDATE1 ---
History and Physical Update Update Date/Time: 12/16/24 11:38 History and Physical has been reviewed, including an updated exam of the patient. There are NO changes in the patient's condition. Risks, benefits, and alternatives have been discussed and questions answered. Patient agrees to proceed with procedure.
[2024-12-16] MEDS: LACTATED RINGERS 1,000 ML 30 ML IV CONT ×2 (12:50→14:34)
--- NOTE | 2024-12-16 13:12 | P.PNAN_ITS ---
Anes - Initial Pre Proc Eval Procedure: Operation Date: 12/16/24 14:45 Proposed Procedures p Laparoscopic Appendectomy - Hailey Maldonado MD Date/Time: 12/16/24 13:12 Surgeon: Hailey Maldonado MD Pre Op Diagnosis: Abdominal pain, early appendicitis Patient Data Age: 29 Gender: F Height: 1.73 m Weight: 109 kg Last Vital Signs Temp 36.5 C 12/16/24 06:26 Pulse 88 12/16/24 07:02 Resp 16 12/16/24 07:02 BP 142/71 H 12/16/24 07:02 Pulse Ox 100 12/16/24 07:02 Allergies Allergy/AdvReac Type Severity Reaction Status Date / Time Sulfa (Sulfonamide Allergy Unknown Hives Verified 12/16/24 04:37 Antibiotics) Home Medications ?Medication ?Instructions ?Recorded ?Confirmed ?Type spironolactone 100 mg tablet 100 mg PO DAILY 09/28/24 12/16/24 History valacyclovir 500 mg tablet 500 mg PO DAILY #90 tabs 10/16/24 12/16/24 Rx (Valtrex) Laboratory Tests 12/16/24 12/16/24 12/16/24 05:11 05:15 05:46 WBC 5.9 K/mm3 (4.5-10.0) RBC 3.89 L M/mm3 (4.2-5.4) Hgb 11.1 L g/dL (12.0-15.0) Hct 34.0 L % (37.0-47.0) MCV 87.4 fl (80-100) MCH 28.5 pg (26-34) MCHC 32.6 g/dl (32-36) RDW 14.0 % (11.5-14.5) Plt Count 296 k/mm3 (150-375) MPV 10.7 H fl (7.4-10.4) Immature Gran % (Auto) 0.2 % (0-0.5) Neut % (Auto) 50.5 % (45.5-73.1) Lymph % (Auto) 37.6 % (18.3-44.2) [place] % (Auto) 8.1 % (2.6-8.5) Eos % (Auto) 2.9 % (0-4.4) Baso % (Auto) 0.7 % (0.2-1.2) Lymph # (Auto) 2.22 K/mm3 (0.9-3.2) [place] # (Auto) 0.5 K/mm3 (0.1-0.6) Eos # (Auto) 0.2 K/mm3 (0-0.3) Baso # (Auto) 0.0 K/mm3 (0.0-0.1) Abs Immat Gran (auto) 0.01 K/mm3 (0.00-0.031) Absolute Neuts (auto) 3.0 K/mm3 (1.3-6.7) Absolute Nucleated RBC 0.000 K/mm3 (0.0-0.012) Nucleated RBC % 0.0 % (0.0-0.2) Sodium 137 mmol/L (137-145) Potassium 3.9 mmol/L (3.4-5.0) Chloride 104 mmol/L (98-107) Carbon Dioxide 25 mmol/L (22-30) Anion Gap 8 mmol/L (4-12) BUN 9 mg/dL (7-17) Creatinine 0.84 mg/dL (0.7-1.0) Estim Creat Clear Calc 114 ml/min Estimated GFR > 60 (59 - ) Glucose 111 H mg/dL (65-110) Calcium 9.3 mg/dL (8.4-10.2) Total Bilirubin 0.7 mg/dL (0.2-1.3) AST 21 U/L (14-36) ALT 21 U/L (6-35) Alkaline Phosphatase 61 U/L (38-126) Total Protein 7.0 g/dL (6.3-8.2) Albumin 4.0 g/dL (3.5-5.1) Lipase 37 U/L (23-300) Urine Color Yellow (Yellow) Urine Appearance Clear (Clear) Urine pH 5.5 (5.0-9.0) Ur Specific [place] 1.018 (1.001-1.035) Urine Protein Negative mg/dL (Negative) Urine Glucose (UA) Negative mg/dL (Negative) Urine Ketones Negative mg/dL (Negative) Ur Blood (Man) Negative (Negative) Urine Nitrate Negative (Negative) Urine Bilirubin Negative (Negative) Urine Urobilinogen 0.2 mg/dL (<2.0) Leukocyte Esterase Rfl Negative LAURA/UL (Negative) POC Urine HCG, Qual Negative (Negative) Patient hx anesthesia problems: none Family hx anesthesia problems: none Results Review: All pre-operative results and documents have been reviewed as part of the pre- operative evaluation. [facility] Past Medical History Medical History STD (sexually transmitted disease) Herpes genitalia Trichomonas vaginalis infection Bronchospasm, exercise-induced Foul smelling vaginal discharge Asthma Surgical History Surgical History History of bunionectomy Social History Social History Social History: Single Smoking status: Never smoker Second hand tobacco smoke exposure: No Alcohol intake: never Substance use: never Substance use type: does not use Do You Feel Safe in your Home?: Yes Lack of Transportation: No Lack of Food: Never True Current Housing: I Have Housing Concerned About Future Housing: No Difficulty Paying Gas/Electric Bills: No Difficulty Paying for Meds: No Currently Unemployed: No Education: Decline to Answer Difficulty w/ Childcare or Family Care: No Living arrangements: with family Occupation/Education: occupation Gender identity (if verbalized by the patient): Female Sexual Orientation (if Verbalized by the Patient): Straight or Heterosexual Spiritual care concerns: No Anes - Eval Final PreProcedure Day of Procedure 12/16/24 13:12 Patient weight: obese Heart: regular rate and rhythm Lungs: clear to auscultation Airway: Mallampati scale class II Neurological: alert and oriented Last oral intake: >/= 8 hours ASA classification: II Emergent: no Anesthetic plan: proceed Anesthesia type and monitoring: general ETT and standard monitoring Results Review: All pre-operative results and documents have been reviewed as part of the pre- operative evaluation. Informed Consent: The patient's anesthetic plan and its attendant risks and benefits were discussed with the patient/family/POA. Questions were solicited and answers provided to the satisfaction of the patient/family/POA.
[2024-12-16] MEDS: BUPIVACAINE/EPINEPHRINE 0.5% 50 ML VIAL 20 ML INFILTRATE (14:06)
--- NOTE | 2024-12-16 14:36 | P.OP_ITS ---
Procedure Note - Detailed Date of Procedure 12/16/24 Pre-op Diagnosis acute appendicitis Post-op Diagnosis Same Procedure Performed laparoscopic appendectomy Surgeon Hailey Maldonado MD Anesthesia General Indications 29-year-old female presenting to the emergency department complaining of lower abdominal pain. Workup, including imaging, significant for acute appendicitis Findings acute appendicitis no evidence of perforation Description of Procedure The patient was taken to the operating room and placed in the supine position. After adequate induction of general anesthesia, the patient was prepped and dr aped in the normal sterile fashion. A time-out was then done to verify the patient's identity, as well as the procedure being performed. I began by making a 5 mm incision in the infraumbilical region, through this a Veress needle was placed in the peritoneal cavity. CO2 gas was then insufflated and after adequate pneumoperitoneum was achieved the Veress needle was removed. Then placed a 5 mm Optiview trocar under direct visualization into the peritoneal cavity. I then insufflated through this trocar site and the endoscope was placed into the trocar. Under direct visualization, placed 2 further 5 mm suprapubic port as well as an additional 12 mm port in the left lower abdomen. At this point identified the cecum, I retracted the cecum both medially and superiorly allowing me to expose the appendix. The appendix was noted to be moderately dilated and inflamed. The appendix was noted to be very adherent to the right lateral sidewall as well as the ileum. I was able to bluntly dissect the appendix from these adhesions. I then was able to locate the base of the appendix with the cecum. I created a window with the [place] dissector between the appendix itself and the mesoappendix. I then transected the mesoappendix with a white vascular staple load. The Endo-KORIN was then reloaded with a blue staple load and I transected the base of the appendix. Once the specimen was c ompletely detached, an endo-pouch was placed into the 12 mm port site and the specimen was removed through the endo-pouch. The appendiceal specimen will be sent to pathology for further review. I then copiously irrigated the right lower quadrant. Hemostasis was noted at both staple lines no other pathology was seen in this area. I then moved the camera to the suprapubic port to check our its port of entry. No iatrogenic injury or other pathology was noted in the upper abdomen. I then closed the 12 mm port site with a David code and 0 Vicryl suture under direct visualization. At this point, the abdomen was desufflated and all ports were removed. All port sites were closed with 4 Monocryl subcuticular suture. Dermabond was placed on all wounds. The patient tolerated the procedure well and was extubated in the operating room postop. He will be sent to the recovery room in stable condition. Estimated Blood Loss 10 Drains No Packing No Pathology Yes Complications No immediate complications Condition Stable Disposition PACU [facility] Billing Surgery - Charge Forward: Surgery Billing
[2024-12-16] MEDS: fentaNYL CITRATE INJ (*CRX) 100 MCG/2 ML VIAL 25 MCG IV PUSH ×8 (14:51→15:33)
[2024-12-16] MEDS: HYDROcodone/acetaminophen (*CRX) 5-325 MG TABLET 1 TAB PO ×2 (16:52→20:44)
[2024-12-16] MEDS: ONDANSETRON INJ 4 MG/2 ML VIAL IV PUSH (20:44)
[2024-12-17 02:00] VITALS: BP 114/61; PULSE 75; RESP 12; TEMP 36.2; O2SAT 100
[2024-12-17 05:39] VITALS: BP 110/66; PULSE 68; RESP 12; TEMP 36.1; O2SAT 100
[2024-12-17] MEDS: SPIRONOLACTONE 50 MG TABLET 100 MG PO (08:54)
[2024-12-17] MEDS: valACYclovir HCL 500 MG TABLET PO (08:54)
[2024-12-17] MEDS: HYDROcodone/acetaminophen (*CRX) 5-325 MG TABLET 1 TAB PO ×2 (08:55→13:29)
[2024-12-17 10:47] VITALS: BP 121/58; PULSE 95; RESP 16; TEMP 36.7; O2SAT 98
--- NOTE | 2024-12-17 10:47 | P.DS_ITS ---
DS: Admitting Diagnosis Discharge Date 12/17/2024 Admitting Diagnosis Acute appendicitis Right ovarian cyst DS: Discharge Diagnosis Discharge Diagnosis (1) Acute appendicitis: Code(s): K35.80 - Unspecified acute appendicitis Status: Acute (2) Right ovarian cyst: Code(s): N83.201 - Unspecified ovarian cyst, right side Status: Acute DS: Summary Hospital Course Reason for hospitalization: This is a 29-year-old woman who presented to the ED with complaints of lower abdominal pain for less than 24 hours. Workup in the ED showed a normal white blood cell count and CT evidence of early appendicitis, and a small right ovarian cyst with small amount of pelvic ascites. Hospital Course: She was admitted and started on IV Zosyn. She underwent laparoscopic appendectomy by Dr. Maldonado on 12/16/2024. Findings during surgery showed acute appendicitis with no evidence of perforation. no immediate complications. By postop day 1 she was tolerating a diet and tolerating activity. Postoperative incisional pain was well controlled. She was voiding without any issues. No other complaints and she was stable for discharge on postop day 1. Status at Discharge Functional status at discharge: independent ambulation Overall status at discharge: patient is progressing back to baseline Time Spent with Patient Time attestation: Total time spent providing and/or coordinating discharge services: Exam Const: General: comfortable and no acute distress Orien tation/consciousness: patient oriented x3 GI: Inspection: non-distended and incision (incisions dry and intact) GI Palp: Yes Soft to palpation, Yes Tenderness to palpation present (GI) (incisional) and No Guarding due to palpation present (GI) Neuro: General: moves all extremities Psych: Mental Status: mental status grossly normal Insight: Good insight present (Psych) DS: Data Data Completed and Pending Pending studies at discharge: Pending at discharge 12/16/24 14:16 Surgical [PTH] Routine Procedures/Treatments: Procedures Operation Date: 12/16/24 14:45 Actual Procedure Side Surgeon p Laparoscopic Appendectomy Not Applicable Hailey Maldonado MD Imaging Radiologist's impression: ITS Impressions Abdomen/Pelvis CT 12/16/24 06:49 Impression: Findings suggestive of possible early appendicitis. Correlate clinically. Small right ovarian cyst with small amount of pelvic ascites. Discharge Plan Discharge Attending physician on discharge: Hailey Maldonado Discharging Clinician: Hailey Maldonado Anticipated Discharge Date/Time: 12/16/24 18:00 Patient Disposition: Home, Self-Care Activity: may shower and as tolerated Diet: as tolerated Wound Care Instructions: incision open to air Discharge Instructions: DISCHARGE INSTRUCTION SHEET FOR HERNIA, GALLBLADDER AND APPENDIX SURGERIES DR. MALDONADO PATIENT TO TAKE HOME 1. May shower in 24 hours, no soaking in bath x 2weeks. 2. Call office for: * Wound increasingly painful or bleeding * Vomiting * Fever of greater than 101 degrees 3. If no bowel movement for three days, take 1 oz. (30 ml) Milk of Magnesia or MiraLax 17g 1 to 2 times daily. 4. No heavy lifting > 10-15 pounds x 6 weeks for hernia repairs and 2 weeks for laparoscopic cholecystectomy or appendectomy. 5. No driving for 3 days or while taking narcotic pain medications. 6. Ice to surgical site for 48 hours (30 min on, then 30 min off). 7. Up walking 10-30 minutes three times per day. 8. Resume previous home medications. 9. Follow-up 10-14 days in office for wound check or as previously scheduled. ([phone]) 10. Oral pain medications prescription to be sent to pharmacy. Take Tylenol 500mg every 6 hours and Ibuprofen 600mg every 6 hours for the first 2 days, then as needed. 11. NUTRITION: Start out by drinking fluids and increase your diet as tolerated. If you experience nausea, try dry toast, crackers, and 7-UP. If nausea or vomiting persists, contact your surgeon?s office. 12. Gallbladders-Low Fat Diet for 2 weeks (send care note of low fat diet) 13. Inguinal Hernias-wear scrotal support for 48 hours 14. Abdominal Hernias-if sent home with abdominal binder, wear for the first 2 weeks (may remove to shower or at night to sleep). Revised 09/2020 Patient Instructions: Antibiotic Form Patient Language: Indian Stand Alone Forms: General Discharge Information, Work/School Release IP Follow-up/Referrals: Hailey Maldonado MD [Physician] - 2 Weeks Discharge Medications: New hydrocodone-acetaminophen 5-325 mg tablet 1 tablet PO Q6H PRN (Reason: pain) Qty: 20 0RF docusate sodium [Colace] 100 mg capsule 100 mg PO BID Qty: 20 0RF Continued spironolactone 100 mg tablet 100 mg PO DAILY Rx Instructions: as per derm valacyclovir [Valtrex] 500 mg tablet 500 mg PO DAILY Qty: 90 0RF Date of admission: 12/16/24 07:04 Primary Care Provider: Juan Pablo Reddy Admitting Provider: Hailey Maldonado Attending physician on admission: Hailey Maldonado Condition: Stable Quality VTE Prophylaxis VTE prophylaxis: mechanical ordered If No VTE Prophylaxis Answer both mechanical and pharmacologic: Reason no pharmacologic proph: low risk/not indicated
--- NOTE | 2024-12-17 13:44 | WPDANESPN ---
Anes - Prog Note Post-Op Date/Time: 12/17/24 13:44 Cardiovascular status: normal Respiratory status: normal Airway patency: baseline Mental status: baseline Post-Op hydration status: normal Vital Signs: Last Vital Signs Temp 98.0 F 12/17/24 10:47 Pulse 95 12/17/24 10:47 Resp 16 12/17/24 10:47 BP 121/58 L 12/17/24 10:47 Pulse Ox 98 12/17/24 10:47 O2 Del Method Room Air 12/16/24 20:00 O2 Flow Rate 6 12/16/24 15:00 Pain Score (VAS): 0/10 I/O: Intake & Output 12/16/24 12/17/24 12/17/24 23:59 07:59 15:59 Intake Total 240 420 360 Balance 240 420 360 Laboratory Tests 12/16/24 05:46 12/16/24 05:46 Post-procedural complaints: none Patient Feedback: Patient satisfied with anesthetic care.
== END 2024-12-17 14:15 | disposition home or self-care (01) ==
LOC: ANHED 07:11 → ANH3MEDSUR 07:44
PROVIDERS: Admitting Provider Surgery; Emergency Provider Emergency Medicine; PCP Family Medicine; Visit Provider Surgery
PROC: 0DTJ4ZZ Resection of Appendix, Percutaneous Endoscopic Approach (ICD-10-PCS; CPT 44970; principal; 2024-12-16 14:45)
DX: K36 Other appendicitis (principal); K38.8 Other specified diseases of appendix; N83.201 Unspecified ovarian cyst, right side; L73.2 Hidradenitis suppurativa; E66.9 Obesity, unspecified; Z68.36 Body mass index [BMI] 36.0-36.9, adult; J45.909 Unspecified asthma, uncomplicated; B00.9 Herpesviral infection, unspecified; Z79.899 Other long term (current) drug therapy
CPT/HCPCS: 44970; 36415; 74177; 80053; 81003; 81025; 83690; 85025; 88304; 96365; 96366; 96375; 99285; A9270; G0378; J1100; J2003; J2250; J2405; J2543; J2704; J3010; J7030; J7120; Q9967

== ENCOUNTER 2025-02-18 09:53 | Outpatient (CLI) | payer OTHER, SELFPAY ==
--- NOTE | ~2025-02-18 | US_ITS ---
Pelvic ultrasound. Clinical History: Abnormal uterine bleeding Technique: Realtime transvaginal scanning of the pelvis was performed. Color flow Doppler and Doppler spectral analysis were performed. Findings: The uterus is anteverted. The endometrial stripe has a thickness of 8 mm. No focal mass is identified. The right ovary measures 1.2 x 0.7 x 1.4 cm. No significant right ovarian or adnexal mass is seen. The left ovary measures 2.0 x 1.2 x 3.1 cm. No significant left ovarian or adnexal mass is seen. There is no evidence of free fluid in the cul de sac. Impression: No significant abnormality seen. Reviewed, dictated and finalized at location . Impression: No significant abnormality seen.
== END 2025-02-18 09:54 | disposition home or self-care (01) ==
LOC: MICIMG 09:53
PROVIDERS: PCP Family Medicine; Visit Provider Student in an Organized Health Care Education/Training Program
DX: N93.9 Abnormal uterine and vaginal bleeding, unspecified (principal)
CPT/HCPCS: 76830